=== PATIENT | female | born 2000 | race African-American/Black ===

== ENCOUNTER 2024-12-10 17:50 | Emergency (ER) | payer BC ==
[~2024-12-10] VITALS: Ht 175.3 cm; Wt 57.2 kg
[2024-12-10 18:05] VITALS: BP 122/68; TEMP 98.3; O2SAT 99
== END 2024-12-10 19:49 | disposition home or self-care (01) ==
LOC: ER 17:53
DX: S60.012A Contusion of left thumb without damage to nail, initial encounter (principal); Z88.0 Allergy status to penicillin; W23.0XXA Caught, crushed, jammed, or pinched between moving objects, initial encounter; Y93.89 Activity, other specified; Y92.89 Other specified places as the place of occurrence of the external cause; Y99.8 Other external cause status
CPT/HCPCS: 73140-TC